=== PATIENT | female | born 1950 | race Caucasian/White ===

== ENCOUNTER 2017-12-20 16:50 | Emergency (ER) | payer MEDICARE ==
--- NOTE | 2017-12-20 19:58 | ULT ---
SOFT TISSUE ULTRASOUND RIGHT UPPER EXTREMITY: 12/20/17 Doppler color flow performed CLINICAL HISTORY: Palpable mass. FINDINGS: There is a lobular hypoechoic focus without significant internal flow by doppler evaluation at the si te of concern within the antecubital fossa, which measures 4.6 cm in diameter. IMPRESSION: Lobular hypoechoic focus accounting for palpable area of concern. No significant internal flow is dem onstrated. This could relate to hematoma. Possibility of soft tissue mass, or infectious fluid collec tion are additional considerations. Recommend correlation with physical exam. Imaging followup is als o recommended to confirm resolution. POS: [facility]
== END 2017-12-20 20:39 | disposition home or self-care (01) ==
LOC: ERS 16:50
DX: R22.31 Localized swelling, mass and lump, right upper limb (principal); I48.91 Unspecified atrial fibrillation; M86.9 Osteomyelitis, unspecified; J45.909 Unspecified asthma, uncomplicated; F32.9 Major depressive disorder, single episode, unspecified
CPT/HCPCS: 76882

== ENCOUNTER 2018-06-15 11:11 | Outpatient (CLI) | payer OTHER, MEDICARE | END 2018-06-15 11:12 | disposition home or self-care (01) | LOC: BICMAMMO 11:11 | PROVIDERS: ATTEND Family Medicine | DX: Z12.31 Encounter for screening mammogram for malignant neoplasm of breast (principal) | CPT/HCPCS: 77063; 77067 ==

== ENCOUNTER 2019-07-01 13:35 | Outpatient (CLI) | payer MEDICARE, OTHER ==
--- NOTE | 2019-07-01 14:46 | MMO ---
Bilateral MAMMO Bilat Screen DDI+DOV. CLINICAL HISTORY: Patient is 68 years old and is seen for screening. The patient has no family history of breast cancer. The patient has no personal history of cancer. The patient has a history of bilateral Excisional Biopsy in - benign. VIEWS: The views performed were: bilateral craniocaudal with tomosynthesis and bilateral mediolateral oblique with tomosynthesis. FILMS COMPARED: The present examination has been compared to prior imaging studies performed at [facility] on 06/15/2018, at [facility] on 04/25/2016, and at [facility] on 03/27/2012. This study has been interpreted with the assistance of computer-aided detection. MAMMOGRAM FINDINGS: There are scattered fibroglandular densities. There are stable benign appearing calcifications seen in both breasts. There are no suspicious masses, suspicious calcifications, or new areas of architectural distortion. IMPRESSION: THERE IS NO MAMMOGRAPHIC EVIDENCE OF MALIGNANCY. A ROUTINE FOLLOW-UP MAMMOGRAM IN 1 YEAR IS RECOMMENDED. THE RESULTS OF THIS EXAM WERE SENT TO THE PATIENT. ACR BI-RADS Category 2 - Benign finding MAMMOGRAPHY NOTE: 1. A negative mammogram report should not delay a biopsy if a dominant of clinically suspicious mass is present. 2. Approximately 10% to 15% of breast cancers are not detected by mammography. 3. Adenosis and dense breasts may obscure an underlying neoplasm. Reported by: SOO LANE MD Electonically Signed: [id number]
== END 2019-07-01 13:36 | disposition home or self-care (01) ==
LOC: BICMAMMO 13:35
PROVIDERS: ATTEND Family Medicine
DX: Z12.31 Encounter for screening mammogram for malignant neoplasm of breast (principal); Z91.89 Other specified personal risk factors, not elsewhere classified
CPT/HCPCS: 77063; 77067

== ENCOUNTER 2022-02-14 13:56 | Outpatient (CLI) | payer OTHER | END 2022-02-14 13:57 | disposition home or self-care (01) | LOC: BICMAMMO 13:56 | PROVIDERS: ATTEND Family Medicine | DX: Z13.21 Encounter for screening for nutritional disorder (principal); Z91.89 Other specified personal risk factors, not elsewhere classified | CPT/HCPCS: 77063; 77067 ==